=== PATIENT | female | born 1945 | race Caucasian/White ===

== ENCOUNTER → 2017-07-25 | Outpatient (CLI) | payer OTHER ==
[~2017-07-25] MED LIST: ACET325T14 PO; CHOL5000 PO; OMEG1CAP34 PO; atorvastatin PO; neurontin PO; will bring a list
== END | disposition home or self-care (01) ==
LOC: CFH 11:05
PROVIDERS: ATTEND Family Medicine
DX: Z12.31 Encounter for screening mammogram for malignant neoplasm of breast (principal)
CPT/HCPCS: G0202

== ENCOUNTER → 2018-01-20 | Outpatient (CLI) | payer OTHER ==
[~2018-01-20] MED LIST changes: +REGADENOSON 0.4 MG/5 ML SYRINGE ONE
== END | disposition home or self-care (01) ==
LOC: CVU 10:24
PROVIDERS: ATTEND Internal Medicine Cardiovascular Disease
DX: I07.1 Rheumatic tricuspid insufficiency (principal); I10 Essential (primary) hypertension
CPT/HCPCS: 78452; 93017; 93306; A9502; J2785

== ENCOUNTER 2020-02-06 06:54 | Outpatient (CLI) | payer MEDICARE ==
[~2020-02-06 06:54] MED LIST changes: -REGADENOSON 0.4 MG/5 ML SYRINGE ONE
== END 2020-02-06 23:59 | disposition home or self-care (01) ==
LOC: CFH 06:54
PROVIDERS: ATTEND Family Medicine
DX: R94.5 Abnormal results of liver function studies (principal)
CPT/HCPCS: 76705

== ENCOUNTER 2020-08-09 10:47 | Emergency (ER) | payer MEDICARE ==
[~2020-08-09] VITALS: Ht 157.5 cm; Wt 96.6 kg
[~2020-08-09 10:47] MED LIST changes: +AMOX1TAB12 PO; +ASCO500T9 PO; +ASPI81TA45 PO; +AZIT500T10 PO; +CHLO25TA PO; +GABAPENTIN PO; +LOSARTAN PO; +RIVA10TA2 PO; +THIA100T67 PO; +ZINC220C7 PO
--- NOTE | 2020-08-09 13:40 | NUR ---
[facility] ASSISTANT DIRECTOR: PT TO ROOM FROM LOBBY
--- NOTE | 2020-08-09 13:45 | NUR ---
INITIAL PT CONTACT. PT PRESENTS TO ED C/O LLQ ABD PAIN SINCE YESTERDAY. PT DENIES N/V/D. PT TO BATHROOM TO PROVIDE URINE SAMPLE. PT RETURNED TO ROOM, SITTING UPRIGHT ON GURNEY WITH DAUGHTER AT BEDSIDE. CALL LIGHT AND PERSONAL BELOINGS WITHIN REACH. WILL CONTINUE TO MONITOR.
[2020-08-09 14:00] LABS: BASOPHILS % (AUTO) 1 % (0-1); EOSINOPHILS % (AUTO) 3 % (1-7); LYMPHOCYTES % (AUTO) 34 % (22-44); MEAN CORPUSCULAR HEMOGLOBIN 29.1 pg (27.0-34.8); MEAN CORPUSCULAR HGB CONC 31.9 g/dL (32.4-35.8); MEAN PLATELET VOLUME 8.4 fL (7.4-10.4); MONOCYTES % (AUTO) 10 % (2-9); NEUTROPHILS % (AUTO) 52 % (42-75); PLATELET COUNT 375 x10^3/uL (130-400); RED CELL DISTRIBUTION WIDTH 16.2 % (9.6-15.2)
[2020-08-09 14:01] LABS: MD NO
[2020-08-09 14:05] LABS: ALANINE AMINOTRANSFERASE 53 U/L (12-78); ALBUMIN 3.5 g/dL (3.4-5.0); ANION GAP 3 mmol/L (5-15); CALCIUM 9.4 mg/dL (8.5-10.1); CHLORIDE 105 mmol/L (98-107); CREATININE 0.69 mg/dL (0.55-1.02)
--- NOTE | 2020-08-09 14:05 | NUR ---
PT SITTING UPRIGHT ON GURNEY WITH DAUGHTER AT BEDSIDE. CALL LIGHT AND PERSONAL BELOINGS WITHIN REACH. PT DENIES ANY NEEDS AT THIS TIME. WILL CONTINUE TO MONITOR.
[2020-08-09 14:06] LABS: MICROSCOPIC NOT IND
[2020-08-09 14:07] LABS: ALKALINE PHOSPHATASE 98 U/L (45-117); BILIRUBIN,TOTAL 0.4 mg/dL (0.2-1.0); TOTAL PROTEIN 7.5 g/dL (6.4-8.2)
--- NOTE | 2020-08-09 15:00 | NUR ---
PT RETURNED FROM IMAGING. UPRIGHT ON GURNEY WITH DAUGHTER AT BEDSIDE. PT DENIES ANY NEEDS AT THIS TIME. CALL LIGHT AND PERSONAL BELONGINGS WITHIN REACH. WILL CONTINUE TO MONITOR.
[2020-08-09] MEDS ORDERED: OMNIPAQUE 350 MG/ML, 100ML BOTTLE ONE (15:05)
[2020-08-09 15:38] VITALS: BP 127/60
--- NOTE | 2020-08-09 15:47 | NUR ---
Patient/Caregiver given discharge instructions and they have confirmed that they understand the instructions. Patient ambulatory with steady gait.
== END 2020-08-09 15:54 | disposition home or self-care (01) ==
LOC: ED 15:20
DX: K57.32 Diverticulitis of large intestine without perforation or abscess without bleeding (principal); R10.32 Left lower quadrant pain; R91.1 Solitary pulmonary nodule; I48.91 Unspecified atrial fibrillation; I10 Essential (primary) hypertension; Z90.710 Acquired absence of both cervix and uterus
CPT/HCPCS: 36415; 74022; 74177; 80053; 81003; 83690; 85025; 99285; Q9967